=== PATIENT | female | born 1985 | race Caucasian/White ===

== ENCOUNTER 2016-07-06 21:50 | Emergency (ER) | payer OTHER ==
[~2016-07-06] VITALS: Ht 162.6 cm; Wt 127.0 kg
[~2016-07-06 21:50] MED LIST: FLUO10CA30 PO; HYDR-656 PO; IMI25 PO; LORA10TA7 PO; NORT25CA PO; PROC25SU30 RC; PROC5TAB50 PO; RANI300T4 PO
[2016-07-06 22:08] VITALS: BP 120/73; PULSE 93; RESP 18; O2SAT 97
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
[2016-07-06 23:15] LABS: BASOPHILS % (AUTO) 0.1 % (0-3); EOSINOPHILS % (AUTO) 5.7 % (0-5); MONOCYTES % (AUTO) 7.8 % (4-12); Mean Corpuscular Hemoglobin 32.4 pg (27.0-35.0); Mean Corpuscular Volume 102.6 fL (81-100); NEUTROPHILS % (AUTO) 63.3 % (40-74); Platelet Count 240 bil/L (150-400)
[2016-07-06 23:31] LABS: APPEARANCE,URINE HAZY (CLEAR,HAZY); COLOR,URINE YELLOW (YELLOW); OCCULT BLOOD,URINE NEGATIVE (NEGATIVE); UROBILINOGEN,URINE NORMAL (NORMAL)
== END 2016-07-07 02:07 | disposition home or self-care (01) ==
LOC: SED 21:50
DX: R10.2 Pelvic and perineal pain (principal); Z79.899 Other long term (current) drug therapy; Z88.8 Allergy status to other drugs, medicaments and biological substances

== ENCOUNTER 2016-09-17 02:54 | Emergency (ER) | payer OTHER ==
[~2016-09-17] VITALS: Ht 162.6 cm; Wt 90.9 kg
[2016-09-17 03:10] VITALS: BP 134/84; PULSE 82; RESP 16; O2SAT 98
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
[2016-09-17] MEDS ORDERED: Lidocaine 4% 50 mL Topical Solution TOPICAL ONE (04:55)
== END 2016-09-17 05:11 | disposition home or self-care (01) ==
LOC: SED 02:54
DX: L55.1 Sunburn of second degree (principal); Z88.8 Allergy status to other drugs, medicaments and biological substances